=== PATIENT | male | born 2000 | race Two or more races ===

== ENCOUNTER 2019-10-13 08:53 | Emergency (ER) | payer OTHER ==
[~2019-10-13] VITALS: Ht 177.8 cm; Wt 72.6 kg
[~2019-10-13 08:53] MED LIST: OSEL75CA PO; TUSSI PRES-B L120 M1 PO
[2019-10-13] MEDS ORDERED: DURICEF (09:10)
[2019-10-13] MEDS ORDERED: TYLENOL EXTRA500 MG PO (09:10)
== END 2019-10-13 16:20 | disposition home or self-care (01) ==
LOC: ER 08:53
DX: B27.80 Other infectious mononucleosis without complication (principal)